=== PATIENT | male | born 1990 | race African-American/Black ===

== ENCOUNTER 2016-11-29 08:32 | Emergency (ER) | payer MEDICAID ==
[~2016-11-29] VITALS: Ht 175.3 cm; Wt 83.0 kg
[2016-11-29] MEDS ORDERED: ALBU18HF2 IH (08:43)
[2016-11-29] MEDS ORDERED: PANTOPRAZOLE SODIUM 40 MG/VIAL IV STA (10:09)
[2016-11-29] MEDS ORDERED: MORPHINE SULFATE 4 MG/ML CPJ (NOT FOR IM USE) IV ONE (10:15)
[2016-11-29] MEDS ORDERED: ONDANSETRON HCL 4MG/2ML VIAL IV ONE (10:15)
[2016-11-29 10:37] LABS: BASOPHILS % 0.4 % (0.0-2.0); EOSINOPHILS % 0.1 % (0.0-5.0); HEMATOCRIT. 43.1 % (42.0-52.0); HEMOGLOBIN. 14.8 g/dL (14.0-18.0); LYMPHOCYTES % 16.5 % (20.0-50.0); MEAN CORPUSCULAR HEMOGLOBIN 29.4 pg (28.0-32.0); MEAN CORPUSCULAR VOLUME 85.5 fL (80.0-94.0); MONOCYTES % 4.6 % (2.0-8.0); NEUTROPHILS % 78.4 % (40.0-76.0); PLATELET 192 x1000/uL (130-400); RED BLOOD CELL COUNT 5.04 mill/uL (4.7-6.1); RED CELL DISTRIBUTION WIDTH 13.5 % (11.6-14.6)
[2016-11-29 10:52] LABS: CARBON DIOXIDE 24 mEq/L (21-32); CHLORIDE 109 mEq/L (98-107)
[2016-11-29 11:01] LABS: INR 1.1; PROTHROMBIN TIME 11.1 sec
[2016-11-29 12:05] VITALS: BP 121/76
== END 2016-11-29 13:52 | disposition home or self-care (01) ==
LOC: ER 08:58
DX: R10.13 Epigastric pain (principal); J45.909 Unspecified asthma, uncomplicated; F12.10 Cannabis abuse, uncomplicated
CPT/HCPCS: 36415; 80053; 83690; 85025; 85610; 96374; 96375; 99284; C9113; J2270; J2405; J7030; Z7610

== ENCOUNTER 2019-10-01 08:02 | Emergency (ER) | payer MEDICAID ==
[~2019-10-01] VITALS: Ht 177.8 cm; Wt 82.0 kg
[~2019-10-01 08:02] MED LIST: ALBU18HF2 IH
[2019-10-01] MEDS ORDERED: ONDANSETRON HCL 4MG/2ML INJ IV STA (08:15)
[2019-10-01] MEDS ORDERED: MORPHINE SULFATE 4 MG/ML CPJ (NOT FOR IM USE) IV STA (08:15)
[2019-10-01] MEDS ORDERED: SODIUM CHLORIDE 0.9% 1,000 ML IV ONE (08:15)
[2019-10-01 08:40] LABS: BASOPHILS % 0.6 % (0.0-2.0); EOSINOPHILS % 0.2 % (0.0-5.0); HEMATOCRIT. 45.5 % (42.0-52.0); HEMOGLOBIN. 15.3 g/dL (14.0-18.0); LYMPHOCYTES % 27.6 % (20.0-50.0); MEAN CORPUSCULAR HEMOGLOBIN 29.5 pg (28.0-32.0); MEAN CORPUSCULAR VOLUME 87.5 fL (80.0-94.0); MEAN PLATELET VOLUME 8.5 fl (7.4-10.4); NEUTROPHILS % 66.6 % (40.0-76.0); PLATELET 248 x1000/uL (130-400); RED BLOOD CELL COUNT 5.21 mill/uL (4.7-6.1); RED CELL DISTRIBUTION WIDTH 13.6 % (11.6-14.6)
[2019-10-01 08:45] LABS: CHLORIDE 108 mEq/L (98-107)
[2019-10-01 08:47] LABS: PROTHROMBIN TIME 10.9 sec (9.6-11.0)
[2019-10-01 08:49] LABS: ETHANOL BLOOD 111 mg/dL
[2019-10-01] MEDS ORDERED: PANTOPRAZOLE SODIUM 40 MG/VIAL IV ONE (09:15)
[2019-10-01 10:44] VITALS: BP 105/83
== END 2019-10-01 10:45 | disposition home or self-care (01) ==
LOC: ER 08:02
DX: R11.2 Nausea with vomiting, unspecified (principal); F10.129 Alcohol abuse with intoxication, unspecified; Y90.5 Blood alcohol level of 100-119 mg/100 ml; J45.909 Unspecified asthma, uncomplicated; F17.290 Nicotine dependence, other tobacco product, uncomplicated
CPT/HCPCS: 36415; 71045; 80053; 80320; 83690; 85025; 85610; 86850; 86900; 86901; 93005; 96361; 96374; 96375; 99285; C9113; J2405; J7030; G0480